=== PATIENT | female | born 1965 | race Caucasian/White ===

== ENCOUNTER 2019-04-28 16:25 | Outpatient (REF) | payer OTHER, SELFPAY ==
--- NOTE | 2019-04-28 16:00 | PAPFT_PTH ---
PATIENT: Avril Nguyen LOC: [facility] U#:[id number] AGE/SX: 54/F ROOM: RE04/28/[address]: Lupe Latif APRN : 1965 BED: DIS: 04/28/2019 SPEC #: [id number] RECD: 04/28/19 18:05 STATUS: GER VIEIRA #: [id number] ZAK: 04/28/19 16:[address]: Lupe Latif DEPT: [facility] Cytology RECD BY: Irene Sykes Tissues: 1 - CX/ENDOCX FOR PAP SMEARS Procedures: PAP THIN PREP/UVM Screening HPV DNA PROBE Comments: [id number]
== END 2019-04-28 16:45 ==
LOC: LBN 16:25
PROVIDERS: PCP Nurse Practitioner Adult Health; Visit Provider Nurse Practitioner Adult Health
DX: Z12.4 Encounter for screening for malignant neoplasm of cervix (principal); Z11.51 Encounter for screening for human papillomavirus (HPV)
CPT/HCPCS: 88142; 87624

== ENCOUNTER 2019-05-20 11:01 | Outpatient (REF) | payer OTHER, SELFPAY ==
--- NOTE | 2019-05-20 10:10 | CER_PTH ---
PATIENT: Avril Nguyen LOC: [facility] U#:[id number] AGE/SX: 54/F ROOM: RE05/20/[address]: Angela Hilliard MD : 1965 BED: DIS: 05/20/2019 SPEC #: [id number] RECD: 05/20/19 12:41 STATUS: GER REWayne #: [id number] ZAK: 05/20/19 10:[address]: Angela Hilliard DEPT: Surgical Specimen RECD BY: Irene Sykes ENTERED: 05/20/19 12:42 SP TYPE: CER OT DR: Lupe Latif APRN Tissues: 1 - CERVICAL BIOPSY 2 - ENDOCERVICAL BX/CURRETTE 3 - CERVICAL BIOPSY 4 - CERVICAL BIOPSY Procedures: GROSS AND MICRO LEVEL 4 Comments: [id number]
== END 2019-05-20 11:21 ==
LOC: LBN 11:01
PROVIDERS: PCP Nurse Practitioner Adult Health; Visit Provider Obstetrics & Gynecology
DX: N84.1 Polyp of cervix uteri (principal); N88.8 Other specified noninflammatory disorders of cervix uteri; N87.9 Dysplasia of cervix uteri, unspecified
CPT/HCPCS: 88305

== ENCOUNTER 2019-05-31 02:08 | Outpatient (CLI) | payer OTHER, SELFPAY ==
[2019-05-31 18:04] LABS: Anion Gap 11.6 mmol/L (3-11); BUN 17 mg/dL (7-18); CO2 23.4 mmol/L (21.0-32.0); CREATININE 0.88 mg/dL (0.55-1.02); Calcium 9.2 mg/dL (8.5-10.1); Calculated LDL 153 mg/dL; Chloride 106 mmol/L (98-107); Cholesterol 234 mg/dL (50-200); Glucose 81 mg/dL (70-100); HDL Cholesterol 60 mg/dL (40-60); Potassium 4.1 mmol/L (3.5-5.1); Sodium 141 mmol/L (136-145); Triglyceride 105 mg/dL (30-150)
[2019-06-02 11:24] LABS: HBs Antibody, Quant >1000.0 mIU/mL; Hepatitis B Surface Ab Positive
== END 2019-05-31 02:28 ==
PROVIDERS: Nurse Practitioner Family; PCP Nurse Practitioner Adult Health; Visit Provider Nurse Practitioner Adult Health
DX: Z13.1 Encounter for screening for diabetes mellitus (principal); Z13.220 Encounter for screening for lipoid disorders; Z02.1 Encounter for pre-employment examination; Z11.59 Encounter for screening for other viral diseases
CPT/HCPCS: 36415; 80048; 80061; 86706

== ENCOUNTER 2019-06-24 00:50 | Outpatient (CLI) | payer OTHER, SELFPAY ==
--- NOTE | 2019-06-24 15:32 | DI.MAMMO_ITS ---
EXAM: MG MAMMO SCREENING CLINICAL HISTORY: screening, Z12.39 TECHNIQUE: Bilateral full field digital CC and MLO mammographic images were obtained with 3D tomosyn thesis and utilizing computer aided detection (CAD). COMPARISON: Comparison 2014 and 2015 from [facility] in [place], [place] FINDINGS: The breasts are composed of heterogeneously dense fibroglandular tissue, breast density category C. No suspicious masses or suspicious microcalcifications are seen. There has been no significant drake ge. IMPRESSION: BI-RADS Cat 1 - Negative. Yearly screening mammography is recommended. BI-RADS Cat 1 - Negative Breast Density - Category C - Heterogeneously dense
== END 2019-06-24 01:10 ==
PROVIDERS: PCP Nurse Practitioner Adult Health; Visit Provider Nurse Practitioner Adult Health
DX: Z12.31 Encounter for screening mammogram for malignant neoplasm of breast (principal)
CPT/HCPCS: 77063; 77067

== ENCOUNTER 2019-08-29 16:49 | Outpatient (REF) | payer OTHER, SELFPAY ==
[2019-08-31 13:36] LABS: Chlamydia Result Negative (Negative); GC Result Negative (Negative)
== END 2019-08-29 17:09 ==
LOC: LBN 16:49
PROVIDERS: PCP Nurse Practitioner Adult Health; Visit Provider Nurse Practitioner Adult Health
DX: N89.8 Other specified noninflammatory disorders of vagina (principal); Z11.3 Encounter for screening for infections with a predominantly sexual mode of transmission
CPT/HCPCS: 87491; 87591; 87480; 87510; 87660

== ENCOUNTER 2020-04-30 16:50 | Outpatient (REF) | payer OTHER, SELFPAY ==
--- NOTE | 2020-04-30 16:00 | PAPFT_PTH ---
PATIENT: Avril Nguyen LOC: [facility] U#:[id number] AGE/SX: 55/F ROOM: RE04/30/[address]: Lupe Latif APRN : 1965 BED: DIS: 04/30/2020 SPEC #: [id number] RECD: 04/30/20 18:15 STATUS: GER REWayne #: [id number] ZAK: 04/30/20 16:[address]: Lupe Latif DEPT: [facility] Cytology RECD BY: Irene Sykes Tissues: 1 - CX/ENDOCX FOR PAP SMEARS Procedures: PAP THIN PREP/UVM Screening HPV DNA PROBE Comments: [id number]
== END 2020-04-30 17:10 ==
LOC: LBN 16:50
PROVIDERS: PCP Nurse Practitioner Adult Health; Visit Provider Nurse Practitioner Adult Health
DX: R87.610 Atypical squamous cells of undetermined significance on cytologic smear of cervix (ASC-US) (principal); R87.810 Cervical high risk human papillomavirus (HPV) DNA test positive
CPT/HCPCS: 88142; 87624

== ENCOUNTER 2020-05-11 16:13 | Outpatient (REF) | payer OTHER, SELFPAY ==
--- NOTE | 2020-05-11 14:20 | CER_PTH ---
PATIENT: Avril Nguyen LOC: [facility] U#:[id number] AGE/SX: 55/F ROOM: RE05/11/[address]: Danita Gerard DO : 1965 BED: DIS: 05/11/2020 SPEC #: [id number] RECD: 05/11/20 16:51 STATUS: GER REQ #: [id number] ZAK: 05/11/20 14:[address]: Danita Gerard DEPT: Surgical Specimen RECD BY: Irene Sykes ENTERED: 05/11/20 16:52 SP TYPE: CER OTHR DR: Lupe Latif APRN Tissues: 1 - CERVICAL BIOPSY 2 - ENDOCERVICAL BX/CURRETTE Procedures: GROSS AND MICRO LEVEL 4 Comments: [id number]
== END 2020-05-11 16:33 ==
LOC: LBN 16:13
PROVIDERS: PCP Nurse Practitioner Adult Health; Visit Provider Obstetrics & Gynecology
DX: R87.610 Atypical squamous cells of undetermined significance on cytologic smear of cervix (ASC-US) (principal); R87.810 Cervical high risk human papillomavirus (HPV) DNA test positive; Z97.5 Presence of (intrauterine) contraceptive device
CPT/HCPCS: 88305

== ENCOUNTER 2020-12-18 17:27 | Outpatient (REF) | payer OTHER, SELFPAY ==
[2020-12-19 15:02] LABS: Chlamydia Result Negative (Negative); GC Result Negative (Negative)
== END 2020-12-18 17:28 | disposition home or self-care (01) ==
LOC: LBN 17:27
PROVIDERS: PCP Nurse Practitioner Adult Health; Visit Provider Obstetrics & Gynecology Gynecology
DX: Z11.3 Encounter for screening for infections with a predominantly sexual mode of transmission (principal)
CPT/HCPCS: 87491; 87591

== ENCOUNTER 2021-10-10 10:20 | Outpatient (REF) | payer OTHER, SELFPAY ==
--- NOTE | 2021-10-10 10:00 | PAPFT_PTH ---
PATIENT: Avril Nguyen LOC: [facility] U#:[id number] AGE/SX: 56/F ROOM: RE10/10/[address]: Danita Gerard DO : 1965 BED: DIS: 10/10/2021 SPEC #: [id number] RECD: 10/10/21 12:54 STATUS: GER REQ #: [id number] ZAK: 10/10/21 10:[address]: Danita Gerard DEPT: [facility] Cytology RECD BY: Irene Sykes ENTERED: 10/10/21 12:54 SP TYPE: PAPFT OTHR DR: Lupe Latif APRN Tissues: 1 - CX/ENDOCX FOR PAP SMEARS Procedures: PAP THIN PREP/UVM Screening HPV DNA PROBE Comments: [id number]
== END 2021-10-10 10:21 | disposition home or self-care (01) ==
LOC: LBN 10:20
PROVIDERS: PCP Nurse Practitioner Adult Health; Visit Provider Obstetrics & Gynecology
DX: Z12.4 Encounter for screening for malignant neoplasm of cervix (principal); Z11.51 Encounter for screening for human papillomavirus (HPV); R87.612 Low grade squamous intraepithelial lesion on cytologic smear of cervix (LGSIL)
CPT/HCPCS: 88142; 87624

== ENCOUNTER 2021-10-11 00:47 | Outpatient (CLI) | payer OTHER, SELFPAY ==
--- NOTE | 2021-10-11 14:30 | DI.MAMMO_ITS ---
Exam(s) MAMMO SCREENING EXAM: MAMMO SCREENING CLINICAL HISTORY: screening TECHNIQUE: Bilateral full field digital CC and MLO mammographic images were obtained with 3D tomosyn thesis and utilizing computer aided detection (CAD). COMPARISON: Available for comparison. FINDINGS: Masses/Architectural Distortion: None seen. Microcalcifications: No suspicious pleomorphic-type are seen. Skin Thickening/Nipple Retraction: None. IMPRESSION: 1. No significant interval change with no specific features of malignancy noted. 2. Unless there is more urgent need, screening mammography is recommended, as per [employer] guidelines. BI-RADS Category 1 - Negative Breast Density - Category C - Heterogeneously dense Breast density category C or D implies that the patient has dense breast tissue. Dense breast tissue is very common and is not abnormal but dense breast tissue can make it harder to find cancer on a ma mmogram. Also, dense breast tissue may increase their breast cancer risk. This information about the result of the mammogram report was provided to the patient to raise their awareness. Use this report when you speak with the patient about their risks for breast cancer, which includes their family hist ory. At that time, you may recommend for more screening tests (Ultrasound or MRI) as they might be us eful based on their risk. A negative radiographic report should not delay biopsy if a dominant or clinically suspicious mass is present. Up to ten percent of cancers are not identified on mammography. A negative report may reinforce clinical impression. Adenosis and dense breasts may obscure an underlying neoplasm. False positive reports average 6 to 10%. Patient will receive a letter notifying them of these results.
== END 2021-10-11 01:07 ==
PROVIDERS: PCP Nurse Practitioner Adult Health; Visit Provider Obstetrics & Gynecology
DX: Z12.31 Encounter for screening mammogram for malignant neoplasm of breast (principal); R92.8 Other abnormal and inconclusive findings on diagnostic imaging of breast
CPT/HCPCS: 77063; 77067

== ENCOUNTER 2021-10-30 17:29 | Outpatient (REF) | payer OTHER, SELFPAY ==
--- NOTE | 2021-10-30 15:15 | ENDO_PTH ---
PATIENT: Avril Nguyen LOC: [facility] U#:[id number] AGE/SX: 56/F ROOM: RE10/30/[address]: Danita Gerard DO : 1965 BED: DIS: 10/30/2021 SPEC #: [id number] RECD: 10/30/21 17:34 STATUS: GER REQ #: [id number] ZAK: 10/30/21 15:[address]: Danita Gerard DEPT: Surgical Specimen RECD BY: Irene Sykes ENTERED: 10/30/21 17:36 SP TYPE: Endo OTHR DR: Lupe Latif APRN Tissues: 1 - ENDOCERVICAL BX/MAYRAETTE Procedures: GROSS AND MICRO LEVEL 4 Comments: [id number]
== END 2021-10-30 17:30 | disposition home or self-care (01) ==
LOC: LBN 17:29
PROVIDERS: PCP Nurse Practitioner Adult Health; Visit Provider Obstetrics & Gynecology
DX: R87.612 Low grade squamous intraepithelial lesion on cytologic smear of cervix (LGSIL) (principal)
CPT/HCPCS: 88305

== ENCOUNTER 2021-12-04 18:33 | Outpatient (REF) | payer OTHER, SELFPAY ==
[2021-12-06 11:40] LABS: COVID-19 RT-PCR UVMMC Result Negative (Negative)
== END 2021-12-04 18:34 | disposition home or self-care (01) ==
LOC: LBN 18:33
PROVIDERS: PCP Nurse Practitioner Adult Health; Visit Provider Nurse Practitioner Family
DX: Z20.822 Contact with and (suspected) exposure to COVID-19 (principal); J01.90 Acute sinusitis, unspecified
CPT/HCPCS: U0003

== ENCOUNTER 2022-11-05 17:39 | Outpatient (REF) | payer OTHER, SELFPAY ==
--- NOTE | 2022-11-05 15:00 | PAPFT_PTH ---
PATIENT: Avril Nguyen LOC: [facility] U#:[id number] AGE/SX: 57/F ROOM: RE11/05/[address]: Danita Gerard DO : 1965 BED: DIS: 11/05/2022 SPEC #: [id number] RECD: 11/05/22 17:44 STATUS: GER REQ #: [id number] ZAK: 11/05/22 15:[address]: Danita Gerard DEPT: [facility] Cytology RECD BY: Irene Sykes ENTERED: 11/05/22 17:44 SP TYPE: PAPFT OTHR DR: Lupe Latif APRN Tissues: 1 - CX/ENDOCX FOR PAP SMEARS Procedures: PAP THIN PREP/UVM Screening HPV DNA PROBE Comments: [id number]
== END 2022-11-05 17:40 | disposition home or self-care (01) ==
LOC: LBN 17:39
PROVIDERS: PCP Nurse Practitioner Adult Health; Visit Provider Obstetrics & Gynecology
DX: Z12.4 Encounter for screening for malignant neoplasm of cervix (principal); Z11.51 Encounter for screening for human papillomavirus (HPV)
CPT/HCPCS: 88142; 87624

== ENCOUNTER 2022-11-20 00:49 | Outpatient (CLI) | payer OTHER, SELFPAY ==
--- NOTE | 2022-11-20 12:45 | DI.MAMMO_ITS ---
Exam(s) MAMMO SCREENING EXAM: MAMMO SCREENING CLINICAL HISTORY: SCREENING, Z12.39 TECHNIQUE: Mammograms were interpreted according to the usual protocol including computer analysis w [employer] CAD system, tomosynthesis and C-view imaging. COMPARISON: 2014 through 2021 FINDINGS: The breasts are composed of scattered fibroglandular densities, Breast Density category B. No suspicious masses or suspicious microcalcifications are seen. No skin thickening or abnormal axillary lymph nodes are seen. There has been no significant change from prior exams. IMPRESSION: BI-RADS Category 1, Negative mammogram Yearly screening mammography is recommended. Breast Density - Category B, scattered fibroglandular densities. A negative radiographic report should not delay biopsy if a dominant or clinically suspicious mass is present. Up to ten percent of cancers are not identified on mammography. A negative report may reinforce clinical impression. Adenosis and dense breasts may obscure an underlying neoplasm. False positive reports average 6 to 10%. Patient will receive a letter notifying them of these results.
== END 2022-11-20 01:09 ==
LOC: DI 00:49
PROVIDERS: PCP Nurse Practitioner Adult Health; Visit Provider Obstetrics & Gynecology
DX: Z12.31 Encounter for screening mammogram for malignant neoplasm of breast (principal)
CPT/HCPCS: 77063; 77067

== ENCOUNTER 2023-12-31 11:45 | Outpatient (REF) | payer OTHER, SELFPAY ==
--- NOTE | 2023-12-31 11:15 | PAPFT_PTH ---
PATIENT: Avril Nguyen LOC: [facility] U#:[id number] AGE/SX: 58/F ROOM: RE12/31/[address]: Lupe Latif APRN : 1965 BED: DIS: 12/31/2023 SPEC #: [id number] RECD: 12/31/23 16:27 STATUS: GER REQ #: [id number] ZAK: 12/31/23 11:[address]: Lupe Latif DEPT: [facility] Cytology RECD BY: Sera Reveles Tissues: 1 - CX/ENDOCX FOR PAP SMEARS Procedures: PAP THIN PREP/UVM Screening HPV DNA PROBE Comments: [id number]
== END 2023-12-31 11:46 | disposition home or self-care (01) ==
LOC: LBN 11:45
PROVIDERS: PCP Nurse Practitioner Adult Health; Visit Provider Nurse Practitioner Adult Health
DX: Z12.4 Encounter for screening for malignant neoplasm of cervix (principal); Z11.51 Encounter for screening for human papillomavirus (HPV)
CPT/HCPCS: 88142; 87624

== ENCOUNTER → 2024-01-11 02:50 | Outpatient (CLI) | payer OTHER, SELFPAY ==
--- NOTE | 2024-01-11 08:15 | DI.MAMMO_ITS ---
Exam(s) MAMMO SCREENING EXAM: MAMMO SCREENING CLINICAL HISTORY: screening, Z12.39 TECHNIQUE: Bilateral full field digital CC and MLO mammographic images were obtained with 3D tomosyn thesis and utilizing computer aided detection (CAD). COMPARISON: Available for comparison. FINDINGS: Masses/Architectural Distortion: There has been interval increase in size of a nodule in the upper ce ntral left breast measuring 1.2 cm on the current examination. It lies 9 cm from the nipple. There are no areas of architectural distortion. Microcalcifications: No suspicious pleomorphic-type are seen. Skin Thickening/Nipple Retraction: None. IMPRESSION: 1. No increase in size of a nodule in the left breast. 2. Spot compression views are requested for further evaluation. Ultrasound may be indicated at that time. BI-RADS Category 0 - Assessment Incomplete: Need additional imaging evaluation Breast Density - Category B - Scattered areas of fibroglandular density Breast density category C or D implies that the patient has dense breast tissue. Dense breast tissue is very common and is not abnormal but dense breast tissue can make it harder to find cancer on a ma mmogram. Also, dense breast tissue may increase their breast cancer risk. This information about the result of the mammogram report was provided to the patient to raise their awareness. Use this report when you speak with the patient about their risks for breast cancer, which includes their family hist ory. At that time, you may recommend for more screening tests (Ultrasound or MRI) as they might be us eful based on their risk. A negative radiographic report should not delay biopsy if a dominant or clinically suspicious mass is present. Up to ten percent of cancers are not identified on mammography. A negative report may reinforce clinical impression. Adenosis and dense breasts may obscure an underlying neoplasm. False positive reports average 6 to 10%. Patient will receive a letter notifying them of these results.
== END ==
PROVIDERS: PCP Nurse Practitioner Adult Health; Visit Provider Nurse Practitioner Adult Health
DX: Z12.31 Encounter for screening mammogram for malignant neoplasm of breast (principal); R92.8 Other abnormal and inconclusive findings on diagnostic imaging of breast
CPT/HCPCS: 77063; 77067

== ENCOUNTER → 2024-01-13 02:55 | Outpatient (CLI) | payer OTHER, SELFPAY ==
--- NOTE | 2024-01-13 | DI.MAMMO_ITS ---
Exam(s) MG MAMMO SCREEN CALL BACK UNI US BREAST LT COMPLETE EXAM: MG MAMMO SCREEN CALL BACK UNI and U/S breast LT complete CLINICAL HISTORY: F/U ABNL MAMMO, INTERVAL INCREASE SIZE OF NODULE LT BREAST. TECHNIQUE: Craniocaudal and mediolateral oblique Full Field Digital Mammography views of the left br east with Computer Aided Diagnosis followed by Tomosynthesis and left breast ultrasound. COMPARISON: Comparison is made with prior examinations. FINDINGS: Mammography/Tomosynthesis: Masses/Architectural Distortion: The lobulated density persists on the additional craniocaudad view. Microcalcifictions: No suspicious pleomorphic-type are seen. Skin Thickening/Nipple Retraction: None. Limited left breast US: Echotexture: Normal appearance of the glandular tissue. Shadowing: No suspicious foci. Cyst: At the 10 o'clock position of the left breast 8 cm from the nipple there is a 0.4 x 0.7 cm by 1 .0 cm ovoid anechoic structure likely reflecting a cyst. This may represent the mammographic finding . At the 11 o'clock position there is a 0.1 x 0.4 x 0.6 cm cyst present. Solid lesions: None seen. Ductal dilation: None. IMPRESSION: 1. No definite evidence for malignancy at this time. 2. A six-month follow-up left mammogram is requested for re-evaluation. 3. The findings were discussed with the patient on the date of the examination. BI-RADS Category 3 - 6 month - Probably Benign Finding: Recommend follow-up imaging in 6 months Breast Density - Category B - Scattered areas of fibroglandular density Breast density Category C or D implies that the patient has dense breast tissue. Dense breast tissue can make it harder to find cancer on a mammogram. Dense breast tissue is also associated with an incr eased risk of breast cancer. This information about the result of the mammogram report was provided to the patient to raise their awareness. Use this report when you speak with the patient about their risks for breast cancer, which includes their family history. At that time, you may recommend additional screening tests (Ultrasoun d or MRI) as these tests may add significant information. A negative radiographic report should not delay biopsy if a dominant or clinically suspicious mass is present. Up to ten percent of cancers are not identified on mammography. A negative report may reinforce clinical impression. Adenosis and dense breasts may obscure an underlying neoplasm. False positive reports average 6 to 10%. Patient will receive a letter notifying them of these results.
== END ==
PROVIDERS: PCP Nurse Practitioner Adult Health; Visit Provider Nurse Practitioner Adult Health
DX: R92.8 Other abnormal and inconclusive findings on diagnostic imaging of breast (principal); Z12.31 Encounter for screening mammogram for malignant neoplasm of breast
CPT/HCPCS: 76642; 77063; 77067

== ENCOUNTER 2024-06-22 02:15 | Outpatient (CLI) | payer OTHER, SELFPAY ==
[2024-06-22 08:19] LABS: Anion Gap 8.7 mmol/L (3-11); BUN 16 mg/dL (7-18); CO2 26.3 mmol/L (21.0-32.0); CREATININE 0.9 mg/dL (0.55-1.02); Calcium 8.7 mg/dL (8.5-10.1); Calculated LDL 116 mg/dL (<100); Chloride 108 mmol/L (98-107); Cholesterol 186 mg/dL (<200); Estimated GFR 74.57 (mL/min/1.73m2); Glucose 76 mg/dL (74-106); HDL Cholesterol 57 mg/dL (40-60); Potassium 3.8 mmol/L (3.5-5.1); Sodium 143 mmol/L (136-145); Triglyceride 66 mg/dL (<150)
== END 2024-06-22 02:16 | disposition home or self-care (01) ==
LOC: LBO 02:15
PROVIDERS: PCP Nurse Practitioner Adult Health; Referring Provider Nurse Practitioner Adult Health; Visit Provider Nurse Practitioner Adult Health
DX: Z13.1 Encounter for screening for diabetes mellitus (principal); Z13.220 Encounter for screening for lipoid disorders
CPT/HCPCS: 36415; 80048; 80061

== ENCOUNTER 2024-07-13 01:35 | Outpatient (CLI) | payer OTHER, SELFPAY ==
--- NOTE | 2024-07-13 | DI.US_ITS ---
Exam(s) MG MAMMO DIAGNOSTIC UNI US BREAST LT LIMITED EXAM: MG MAMMO DIAGNOSTIC UNI CLINICAL HISTORY: interval 6 mo F/U,r92.8,lt lobulated density,lt cysts. COMPARISON: MG MG MAMMO SCREENING from 06/24/2019 MG MG MAMMO SCREENING from 10/11/2021 MG MG MAMMO SCREENING from 11/20/2022 MG MG MAMMO SCREENING from 01/11/2024 US US BREAST LT COMPLETE from 01/13/2024 MG MG MAMMO SCREEN CALL BACK UNI from 01/13/2024 US US BREAST LT LIMITED from 07/13/2024 TECHNIQUE: Craniocaudal and mediolateral oblique Full Field Digital Mammography views of the left br east with Computer Aided Diagnosis followed by Tomosynthesis and left breast ultrasound. FINDINGS: Mammography/Tomosynthesis: Masses: Stable ovoid circumscribed low-density nodule noted in the upper central portion of the breas t. Architectural Distortion: None seen. Microcalcifications: No suspicious pleomorphic-type are seen. Skin Thickening/Nipple Retraction: None. Left breast US: Echotexture: Normal appearance of the glandular tissue. Shadowing: No suspicious foci. Solid lesions: Ovoid hypoechoic nodule central fatty hilum measured at 10 x 5 x 7 millimeters on the current exam. There is a central fatty hilum. This likely represents intramammary lymph node. Ductal dilation: None. IMPRESSION: 1. No evidence of malignancy is noted. 2. Unless there is more urgent need, follow-up screening mammography is recommended, as per [employer] guidelines the due in 6 months. BI-RADS Category 2 - Benign Findings Breast Density - Category B - Scattered areas of fibroglandular density Breast density category C or D implies that the patient has dense breast tissue. Dense breast tissue is very common and is not abnormal but dense breast tissue can make it harder to find cancer on a ma mmogram. Also, dense breast tissue may increase their breast cancer risk. This information about the result of the mammogram report was provided to the patient to raise their awareness. Use this report when you speak with the patient about their risks for breast cancer, which includes their family hist ory. At that time, you may recommend for more screening tests (Ultrasound or MRI) as they might be us eful based on their risk. A negative radiographic report should not delay biopsy if a dominant or clinically suspicious mass is present. Up to ten percent of cancers are not identified on mammography. A negative report may reinforce clinical impression. Adenosis and dense breasts may obscure an underlying neoplasm. False positive reports average 6 to 10%. Patient will receive a letter notifying them of these results.
== END 2024-07-13 01:55 ==
LOC: DI 01:35
PROVIDERS: PCP Nurse Practitioner Adult Health; Visit Provider Nurse Practitioner Adult Health
DX: R92.8 Other abnormal and inconclusive findings on diagnostic imaging of breast (principal); Z12.31 Encounter for screening mammogram for malignant neoplasm of breast
CPT/HCPCS: 76642; 77061; 77065; G0279

== ENCOUNTER 2025-02-13 02:46 | Outpatient (CLI) | payer OTHER, SELFPAY ==
--- NOTE | 2025-02-13 09:15 | DI.MAMMO_ITS ---
Exam(s) MAMMO SCREENING EXAM: MAMMO SCREENING CLINICAL HISTORY: screening, Z12.39. TECHNIQUE: Bilateral full field digital CC and MLO mammographic images were obtained with 3D tomosynthesis and utilizing computer aided detection (CAD). COMPARISON: Prior mammograms were reviewed. Prior ultrasound of 07/13/2024 was also reviewed. FINDINGS: There has been no significant change in the appearance and distribution of the fibroglandular tissue which is moderately dense in the upper outer quadrants.. There are no new spiculated masses nor new malignant appearing microcalcification groups. There is no significant architectural distortion nor skin thickening-retraction. IMPRESSION: No radiographic evidence of malignancy. BI-RADS Category 1 - Negative Breast Density - Category C - The breast are heterogeneously dense, which may obscure small masses. Breast density Category C or D implies that the patient has dense breast tissue. Dense breast tissue can make it harder to find cancer on a mammogram. Dense breast tissue is also associated with an increased risk of breast cancer. This information about the result of the mammogram report was provided to the patient to raise their awareness. Use this report when you speak with the patient about their risks for breast cancer, which includes their family history. At that time, you may recommend additional screening tests (Ultrasound or MRI) as these tests may add significant information. A negative radiographic report should not delay biopsy if a dominant or clinically suspicious mass is present. Up to ten percent of cancers are not identified on mammography. A negative report may reinforce clinical impression. Adenosis and dense breasts may obscure an underlying neoplasm. False positive reports average 6 to 10%. Patient will receive a letter notifying them of these results.
== END 2025-02-13 03:06 ==
LOC: DI 02:46
PROVIDERS: PCP Nurse Practitioner Adult Health; Visit Provider Nurse Practitioner Adult Health
DX: Z12.31 Encounter for screening mammogram for malignant neoplasm of breast (principal); R92.333 Mammographic heterogeneous density, bilateral breasts
CPT/HCPCS: 77063; 77067